=== PATIENT | female | born 1995 | race Caucasian/White ===

== ENCOUNTER 2018-07-31 14:27 | Outpatient (CLI) | payer OTHER ==
--- NOTE | 2018-08-01 14:28 | ULT ---
PELVIC ULTRASOUND: Transabdominal and endovaginal ultrasound of pelvis performed. INDICATION: Positive test. FINDINGS: Uterus is retroverted. Uterine measurements recorded at 7.8 x 4.0 x 4.7 cm. The endometrial stripe is measured at 8-9 mm. No evidence of intrauterine gestation identified. Both ovaries are identified. There are follicles seen bilaterally. Two larger follicular cysts on the left measure 1.0 and 1.5 cm, respectively. Color Doppler and spectral analysis demonstrates blood flow to both ovaries. No free fluid. IMPRESSION: No evidence of intrauterine gestation identified. Ectopic is not excluded by this study. Re commend continued close follow-up with serial HCG levels and follow-up ultrasound as indicated. POS: OFF
== END 2018-07-31 14:28 | disposition home or self-care (01) ==
LOC: SCSULT 14:27
PROVIDERS: ATTEND Physician Assistant
DX: Z32.01 Encounter for pregnancy test, result positive (principal)
CPT/HCPCS: 76856